=== PATIENT | female | born 1980 | race Caucasian/White ===

== ENCOUNTER 2018-03-27 15:20 | Emergency (ER) | payer BC ==
[~2018-03-27] VITALS: Ht 165.1 cm; Wt 89.8 kg
[2018-03-27 16:30] LABS: BASOPHILS % 0.4 % (0.0-1.0); EOSINOPHILS # (AUTO) 0.2 (0.0-0.4); EOSINOPHILS % 2.2 % (0.0-6.0); HEMATOCRIT 35.3 % (34.2-44.1); HEMOGLOBIN 11.5 g/dL (12.0-16.0); LYMPHOCYTES # (AUTO) 2.5 (1.0-3.2); LYMPHOCYTES % 24.8 % (18.0-39.1); MEAN CORPUSCULAR HEMOGLOBIN 28.6 pg (28-32); MEAN CORPUSCULAR HGB CONC 32.6 g/dL (31-35); MEAN CORPUSCULAR VOLUME 87.8 fL (81-99); MONOCYTES # (AUTO) 0.7 (0.2-0.8); MONOCYTES % 7.2 % (4.4-11.3); NEUTROPHILS # (AUTO) 6.6 (2.1-6.9); NEUTROPHILS % 65.1 % (38.7-80.0); PLATELET COUNT 324 x10e3/uL (140-360); RED BLOOD COUNT 4.02 x10e6/uL (3.6-5.1); RED CELL DISTRIBUTION WIDTH 13.6 % (11.7-14.4)
[2018-03-27 16:39] LABS: BILIRUBIN,URINE NEGATIVE (NEGATIVE); CLARITY,URINE CLOUDY (CLEAR); COLOR,URINE YELLOW (YELLOW); KETONES,URINE NEGATIVE (NEGATIVE); LEUKOCYTE ESTERASE ,URINE 2+ (NEGATIVE); NITRITE,URINE NEGATIVE (NEGATIVE); PROTEIN,URINE DIPSTICK NEGATIVE (NEGATIVE); URINE UROBILINOGEN 0.2 mg/dL (0.2 - 1)
[2018-03-27 16:48] LABS: BACTERIA,URINE MODERATE /HPF; EPITHELIAL CELLS,URINE MODERATE /LPF; MUCUS,URINE FEW (RARE); RBC,URINE 0-5 /HPF (0-5); WBC,URINE (MAN) 21-50 /HPF (0-5)
[2018-03-27 16:50] LABS: INR 0.95; PARTIAL THROMBOPLASTIN TIME 25.7 seconds (23.8-35.5); PROTHROMBIN TIME 11.9 seconds (11.9-14.5)
[2018-03-27 16:52] LABS: ALANINE AMINOTRANSFERASE 21 IU/L (0-55); ALBUMIN 3.9 g/dL (3.5-5.0); ALBUMIN/GLOBULIN RATIO 1.1 (0.8-2.0); ALKALINE PHOSPHATASE 58 IU/L (40-150); ANION GAP 11.7 mmol/L (8-16); BLOOD UREA NITROGEN 10 mg/dL (7-26); BUN/CREATININE RATIO 13 (6-25); CALCIUM 10.2 mg/dL (8.4-10.2); CARBON DIOXIDE 25 mmol/L (22-29); CHLORIDE 107 mmol/L (98-107); CREATINE KINASE 99 IU/L (29-168); CREATININE, SERUM 0.78 mg/dL (0.57-1.11); EST GLOMERULAR FILTRATION RATE > 60 ML/MIN (60-); GLUCOSE 109 mg/dL (74-118); LIPASE 45 U/L (8-78); POTASSIUM 3.7 mmol/L (3.5-5.1); SODIUM 140 mmol/L (136-145)
[2018-03-27] MEDS ORDERED: DONNATAL/LIDOCAINE/MAALOX 30 ML SUSP PO ONE (17:40)
[2018-03-27] MEDS ORDERED: LIDOCAINE VISC 2% SOLN 15 ML UDC ONE (17:48)
[2018-03-27] MEDS ORDERED: BELLADONNA ALK/PHENOBARBITAL 5 ML UDC ONE (17:48)
--- NOTE | 2018-03-27 17:56 | Diagnostic Imaging Report ---
PROCEDURE:US GALLBLADDER COMPARISON:None. INDICATIONS:ABDOMEN PAIN TECHNIQUE: Diane-scale and color doppler transverse and longitudinal images of the right upper quadrant of the abdomen were obtained. FINDINGS: Exam mildly limited by overlying bowel gas. Liver: 12.6 cm in right mid-clavicular line. Increased echogenicity. No masses. Main portal vein: 1.0 cm, hepatopetal flow Gallbladder: No stones, sludge, wall thickening, or pericholecystic fluid. Common Bile Duct: 0.3 cm Sonographic Yi's sign: Negative Right kidney: 11.3 cm. Normal echogenicity. No solid masses or hydronephrosis. Pancreas: The visualized portions of the neck and proximal body are unremarkable. Inferior vena cava: Patent Aorta: Proximal portion is obscured by overlying bowel gas. Mid and distal portions are unremarkable. Ascites: None in the right upper quadrant of the abdomen. CONCLUSION: 1. No sonographic evidence of cholelithiasis or cholecystitis. 2. Diffuse hepatic steatosis. No focal lesions. Angel Mei M.D. Dictated by: Angel Mei M.D. on 03/27/2018 at 17:58 Electronically approved by: Angel Mei M.D. on 03/27/2018 at 17:58
--- NOTE | 2018-03-27 18:06 | Diagnostic Imaging Report ---
PROCEDURE: A single AP view of the chest. COMPARISON: None. INDICATIONS: CHEST PAIN FINDINGS: Lines/tubes: None. Lungs: The lungs are well inflated and clear. There is no evidence of pneumonia or pulmonary edema. Pleura: There is no pleural effusion or pneumothorax. Heart and mediastinum: The heart and the mediastinum are unremarkable. Bones: No acute bony abnormality. IMPRESSION: 1. No acute cardiopulmonary abnormalities. Angel Mei M.D. Dictated by: Angel Mei M.D. on 03/27/2018 at 18:08 Electronically approved by: Angel Mei M.D. on 03/27/2018 at 18:08
[2018-03-27] MEDS ORDERED: DONNATAL/LIDOCAINE/MAALOX 30 ML SUSP PO SCH (21:00)
== END 2018-03-27 19:12 | disposition home or self-care (01) ==
LOC: ER 15:20
DX: R10.13 Epigastric pain (principal); R11.0 Nausea; K59.00 Constipation, unspecified; F41.9 Anxiety disorder, unspecified
CPT/HCPCS: 36415; 71045; 76705; 80053; 81001; 82550; 82553; 83690; 84484; 84702; 85025; 85610; 85730; 87086; 93005; 99284